=== PATIENT | male | born 1945 | race Caucasian/White ===

== ENCOUNTER → 2016-07-28 | Day surgery (SDC) | payer MEDICARE, OTHER, SELFPAY ==
[2016-07-28 07:08] LABS: CREATININE 1.1 mg/dL (0.7-1.2); POTASSIUM 4.2 mmol/L (3.5-5.1)
== END | disposition home or self-care (01) ==
LOC: FAS 07:43
PROVIDERS: Anesthesiology
DX: M75.122 Complete rotator cuff tear or rupture of left shoulder, not specified as traumatic (principal); M19.012 Primary osteoarthritis, left shoulder; M75.02 Adhesive capsulitis of left shoulder; M25.812 Other specified joint disorders, left shoulder; M75.82 Other shoulder lesions, left shoulder; I10 Essential (primary) hypertension; Z79.899 Other long term (current) drug therapy; Z98.890 Other specified postprocedural states; Z90.89 Acquired absence of other organs; Z96.639 Presence of unspecified artificial wrist joint
CPT/HCPCS: 36415; 80048; C1713; J2405; J2704; J2795; J3010

== ENCOUNTER 2021-09-22 05:25 | Day surgery (SDC) | payer MEDICARE, OTHER ==
[~2021-09-22] VITALS: Ht 168 cm; Wt 61.0 kg
[~2021-09-22 05:25] MED LIST: ASPIRIN CHEWABL81 MG PO; ATENOLOL25 MG PO; CENTRUM ADULTS1 EACH PO; DICLOFENAC SODI75 MG PO; GLUCOSAMINE1000 MG PO; LISINOPRIL20 MG PO; MELOXICAM15 MG PO; OMEGA 3 500 SO1 EACH PO; OSTEO BI-FLEX1 EACH PO; PERCOCET 5-3251 EACH PO; SAW PALMETTO450 MG PO; STOOL SOFTENER1 EACH PO
[2021-09-22 06:37] LABS: CREATININE 0.96 mg/dL (0.67-1.17); POTASSIUM 3.9 mmol/L (3.5-5.1)
--- NOTE | 2021-09-22 13:10 | NUR ---
[facility]
[2021-09-22] MEDS ORDERED: ASPIRIN81 MG PO (15:05)
[2021-09-23 07:22] LABS: BASOPHIL 0.2 % (0-2); EOSINOPHIL 0 % (0-7); HCT 36.5 % (42.0-52.0); HGB 12.2 g/dl (13.2-18.0); LYMPHOCYTE 7.1 % (15-48); MCH 32.9 pg (25.0-31.0); MCHC 33.4 g/dL (32.0-36.0); MCV 98.4 fL (78.0-100.0); MONOCYTE 9.5 % (0-12); MPV 9.3 fL (6.0-9.5); NEUTROPHIL 82.8 % (41-80); NRBC 0; PLT 262 K/uL (150-400); RBC 3.71 M/uL (4.70-6.00); WBC 9.9 K/uL (4.0-10.5)
[2021-09-23 07:43] LABS: BUN/CREAT RATIO (CALC) 20.5 RATIO; CREATININE 0.83 mg/dL (0.67-1.17); POTASSIUM 3.8 mmol/L (3.5-5.1)
[2021-09-23] MEDS ORDERED: FEOSOL325 MG PO (08:46)
== END 2021-09-23 15:50 | disposition home health service (06) ==
LOC: FAS 05:25 → FMS 07:58 → FAS 09-23 15:50
PROVIDERS: Anesthesiology; Orthopaedic Surgery
DX: M17.11 Unilateral primary osteoarthritis, right knee (principal); I10 Essential (primary) hypertension; E78.5 Hyperlipidemia, unspecified
CPT/HCPCS: 36415; 73560; 80048; 85025; 86850; 86900; 86901; 94010; 94760; 94762; 97110; 97162; 97166; 97530; 97530-GP; 97535; C1713; C1776; J0171; J0697; J1170; J1885; J2250; J2270; J2405; J2704; J2795; J3010; J7120